=== PATIENT | female | born 1930 | race Caucasian/White ===

== ENCOUNTER 2020-12-13 10:16 | Inpatient (IN) | payer MEDICARE, MEDICAID ==
[~2020-12-13] VITALS: Ht 147.3 cm; Wt 59.9 kg
[2020-12-13] MEDS ORDERED: ASPIRIN 81MG TABLET PO ONE (11:30)
[2020-12-13 11:43] LABS: CHLORIDE 111 mEq/L (98-107)
[2020-12-13 11:47] LABS: BASOPHILS % 0.7 % (0.0-2.0); EOSINOPHILS % 2.2 % (0.0-5.0); HEMATOCRIT. 40.2 % (36.0-48.0); LYMPHOCYTES % 29.6 % (20.0-50.0); MEAN CORPUSCULAR HEMOGLOBIN 31.9 pg (28.0-32.0); MEAN CORPUSCULAR VOLUME 91.8 fL (81.0-99.0); MEAN PLATELET VOLUME 8.8 fl (7.4-10.4); MONOCYTES % 7.7 % (2.0-8.0); NEUTROPHILS % 59.8 % (40.0-76.0); PLATELET 210 x1000/uL (130-400); RED BLOOD CELL COUNT 4.37 mill/uL (4.2-5.4); RED CELL DISTRIBUTION WIDTH 13.7 % (11.6-14.6)
[2020-12-13] MEDS ORDERED: ONDANSETRON HCL 4MG/2ML INJ IV PRN (18:15)
[2020-12-13] MEDS ORDERED: MAGNESIUM/ALUMINUM HYDROXIDE/SIMETHICONE 30ML UDC PO PRN (18:15)
[2020-12-13] MEDS ORDERED: ACETAMINOPHEN 325MG TABLET PO PRN (18:15)
[2020-12-13] MEDS ORDERED: CLONIDINE 0.1MG TABLET PO PRN (18:15)
[2020-12-13] MEDS ORDERED: HYDROCODONE/ACETAMINOPHEN 5/325MG TABLET PO PRN (19:00)
[2020-12-13] MEDS: ENOXAPARIN 30MG/0.3ML SYR SUBCUT SCH (20:02)
[2020-12-13 21:30] VITALS: BP 154/73
[2020-12-13 23:26] LABS: CLARITY URINE CLOUDY (CLEAR); COLOR URINE YELLOW (YELLOW); KETONES URINE TRACE (NEGATIVE); LEUKOCYTE ESTERASE URINE 2+ (NEGATIVE); NITRITE URINE POSITIVE (NEGATIVE); OCCULT BLOOD URINE 1+ (NEGATIVE); PH URINE 5.5 (4.5-8.0); PROTEIN URINE NEGATIVE (NEGATIVE); SPECIFIC GRAVITY URINE 1.018 (1.005-1.030); UROBILINOGEN URINE 0.2 E.U./dL (0.2-1.0)
[2020-12-13 23:42] LABS: *AMPHETAMINES SCREEN URINE NEGATIVE (NEGATIVE); *BARBITURATES SCREEN URINE NEGATIVE (NEGATIVE)
[2020-12-13 23:43] LABS: *BENZODIAZEPINES SCREEN URINE NEGATIVE (NEGATIVE); *COCAINE SCREEN URINE NEGATIVE (NEGATIVE); CANNABINOID URINE SCREEN NEGATIVE (NEGATIVE); METHADONE URINE SCREEN NEGATIVE (NEGATIVE); OPIATES URINE SCREEN NEGATIVE (NEGATIVE); PHENCYCLIDINE URINE SCREEN NEGATIVE (NEGATIVE)
[2020-12-14] VITALS (7 sets, daily range): BP systolic 107–160; BP diastolic 50–75
[2020-12-14] MEDS ORDERED: AMLO5TAB88 MT (00:53)
[2020-12-14] MEDS ORDERED: LEVO25TA7 MT (06:09)
[2020-12-14] MEDS ORDERED: CARV6.2548 MT (06:10)
[2020-12-14] MEDS ORDERED: ASPI-1406 MT (06:11)
[2020-12-14] MEDS ORDERED: GABA-529 MT (06:11)
[2020-12-14] MEDS ORDERED: OMEP20CA14 MT (06:12)
[2020-12-14] MEDS ORDERED: SIMV-46 MT (06:13)
[2020-12-14] MEDS: OMEPRAZOLE 20MG CAPSULE EXTENDED RELEASE PO SCH (06:48)
[2020-12-14 06:55] LABS: CHLORIDE 112 mEq/L (98-107)
[2020-12-14 06:58] LABS: BASOPHILS % 0.7 % (0.0-2.0); EOSINOPHILS % 2.4 % (0.0-5.0); HEMATOCRIT. 39.2 % (36.0-48.0); HEMOGLOBIN. 13.5 g/dL (12.0-16.0); MEAN CORPUSCULAR HEMOGLOBIN 31.1 pg (28.0-32.0); MEAN CORPUSCULAR VOLUME 90.7 fL (81.0-99.0); MEAN PLATELET VOLUME 8.9 fl (7.4-10.4); MONOCYTES % 9.7 % (2.0-8.0); NEUTROPHILS % 49.2 % (40.0-76.0); PLATELET 223 x1000/uL (130-400); RED BLOOD CELL COUNT 4.33 mill/uL (4.2-5.4); RED CELL DISTRIBUTION WIDTH 13.8 % (11.6-14.6)
[2020-12-14 07:03] LABS: PHOSPHORUS 3.2 mg/dL (2.5-4.9)
[2020-12-14 07:04] LABS: LDL CHOLESTEROL 137 mg/dL (5-100)
[2020-12-14 07:06] LABS: HDL CHOLESTEROL 48 mg/dL (40-59)
[2020-12-14] MEDS: LEVOTHYROXINE SODIUM 25MCG TABLET PO SCH (08:30)
[2020-12-14] MEDS ORDERED: OMEPRAZOLE 20MG CAPSULE EXTENDED RELEASE PO SCH (08:30)
[2020-12-14] MEDS: ASPIRIN 81MG EC TABLET PO SCH (08:40)
[2020-12-14] MEDS: FUROSEMIDE 40MG TABLET PO SCH (08:41)
[2020-12-14] MEDS: LISINOPRIL 20MG TABLET PO SCH (08:41)
[2020-12-14] MEDS: GABAPENTIN 100MG CAPSULE PO SCH ×3 (08:42→18:39)
[2020-12-14] MEDS ORDERED: AMLODIPINE 5MG TABLET PO SCH (09:00)
[2020-12-14] MEDS ORDERED: ASPIRIN 81MG EC TABLET PO SCH (09:00)
[2020-12-14] MEDS ORDERED: CARVEDILOL 6.25 MG TABLET PO SCH (09:00)
[2020-12-14] MEDS ORDERED: ATORVASTATIN CALCIUM 20MG TABLET PO SCH (21:00)
[2020-12-14] MEDS ORDERED: MEDICATION NOT ON FORMULARY EA (Simvastatin 1 TAB) MT SCH (21:00)
[2020-12-14] MEDS: METOPROLOL TARTRATE 50MG TABLET PO SCH (21:46)
[2020-12-14] MEDS: ENOXAPARIN 30MG/0.3ML SYR SUBCUT SCH (21:46)
[2020-12-14] MEDS ORDERED: CEFTRIAXONE 1 G PREMIX 50 ML IV ONE (23:15)
[2020-12-15] VITALS (7 sets, daily range): BP systolic 106–144; BP diastolic 48–84
[2020-12-15] MEDS ORDERED: CEFTRIAXONE 1,000 MG in DEXTROSE 5% WATER 50 ML IV SCH (01:00)
[2020-12-15] MEDS: LEVOTHYROXINE SODIUM 25MCG TABLET PO SCH (06:31)
[2020-12-15] MEDS: OMEPRAZOLE 20MG CAPSULE EXTENDED RELEASE PO SCH (06:31)
[2020-12-15 06:48] LABS: BASOPHILS % 0.5 % (0.0-2.0); EOSINOPHILS % 2.8 % (0.0-5.0); HEMATOCRIT. 42.3 % (36.0-48.0); HEMOGLOBIN. 14.2 g/dL (12.0-16.0); MEAN CORPUSCULAR HEMOGLOBIN 30.9 pg (28.0-32.0); MEAN CORPUSCULAR VOLUME 91.9 fL (81.0-99.0); MEAN PLATELET VOLUME 8.8 fl (7.4-10.4); MONOCYTES % 8.4 % (2.0-8.0); NEUTROPHILS % 58.3 % (40.0-76.0); PLATELET 224 x1000/uL (130-400); RED CELL DISTRIBUTION WIDTH 13.7 % (11.6-14.6)
[2020-12-15 07:08] LABS: CHLORIDE 104 mEq/L (98-107)
[2020-12-15] MEDS: GABAPENTIN 100MG CAPSULE PO SCH ×2 (09:00→12:33)
[2020-12-15] MEDS: FUROSEMIDE 40MG TABLET PO SCH (09:01)
[2020-12-15] MEDS: ASPIRIN 81MG EC TABLET PO SCH (09:01)
[2020-12-15] MEDS: METOPROLOL TARTRATE 50MG TABLET PO SCH (09:05)
[2020-12-15] MEDS: LISINOPRIL 20MG TABLET PO SCH (09:05)
[2020-12-15] MEDS ORDERED: SULF-292 MT (14:25)
== END 2020-12-15 16:12 | disposition home or self-care (01) | DRG 198 ==
LOC: EDBD 10:16 → ER 10:16 → 6WST 13:59 → ENRESERV 20:08
PROVIDERS: ADMIT Internal Medicine; ATTEND Internal Medicine
DX: I24.9 Acute ischemic heart disease, unspecified (principal); I47.2 Ventricular tachycardia; E11.9 Type 2 diabetes mellitus without complications; I11.9 Hypertensive heart disease without heart failure; I44.7 Left bundle-branch block, unspecified; E78.5 Hyperlipidemia, unspecified; M19.90 Unspecified osteoarthritis, unspecified site; N39.0 Urinary tract infection, site not specified; Z79.899 Other long term (current) drug therapy; Z79.82 Long term (current) use of aspirin; Z95.0 Presence of cardiac pacemaker
CPT/HCPCS: 36415; 71045; 80048; 80053; 80061; 80076; 80305; 81003; 83735; 83880; 84100; 84443; 84484; 85025; 87077; 87186; 93005; 93306; 93970; 97161; 99285; J0696; J1650; J7060